=== PATIENT | female | born 1940 | race Caucasian/White ===

== ENCOUNTER 2016-05-29 03:26 | Inpatient (IN) | payer MEDICARE ==
[2016-05-29] VITALS (23 sets, daily range): BP systolic 69–166; BP diastolic 39–62
[~2016-05-29] VITALS: Ht 152.4 cm; Wt 42.6 kg
[2016-05-29] MEDS ORDERED: VANCOMYCIN PER PHARMACY MC PRN (03:45)
[2016-05-29] MEDS ORDERED: IPRATRPIUM/ALBUTEROL 0.5/2.5MG 3 ML NEBU. NEB ONE (04:00)
[2016-05-29 04:09] LABS: BASO % 0 % (0-3); EOS % 0 % (0-3); HEMATOCRIT 29.8 % (36.0-47.0); LYMPH # 0.6 x10^3/uL (1.0-4.8); LYMPH % 98 % (24-48); MEAN CORPUSCULAR HEMOGLOBIN 30 pg (25-35); MEAN CORPUSCULAR HGB CONC 33 g/dL (31-37); MEAN CORPUSCULAR VOLUME 88 fL (79-100); MONO % 1 % (0-9); NEUT % 1 % (31-73); PLATELET COUNT 33 x10^3/uL (140-400); RED BLOOD COUNT 3.38 x10^6/uL (3.50-5.40); RED CELL DISTRIBUTION WIDTH 14.9 % (11.5-14.5)
[2016-05-29 04:14] LABS: CALCIUM 9.1 mg/dL (8.5-10.1); CREATININE 1.9 mg/dL (0.6-1.0); GFR 25.8; POTASSIUM 3.3 mmol/L (3.5-5.1)
[2016-05-29 04:15] LABS: WHITE BLOOD COUNT 0.6 x10^3/uL (4.0-11.0)
[2016-05-29] MEDS ORDERED: IV NORMAL SALINE 1000ML BAG 1,000 ML IV SCH ×3 (04:15→08:25)
[2016-05-29 04:28] LABS: OBC FLU VALID
[2016-05-29 04:29] LABS: ALBUMIN 3.1 g/dL (3.4-5.0); ALBUMIN/GLOBULIN RATIO 0.9 (1.0-1.7); TOTAL BILIRUBIN 0.6 mg/dL (0.2-1.0); TOTAL PROTEIN 6.5 g/dL (6.4-8.2)
[2016-05-29] MEDS ORDERED: ACETAMINOPHEN 650 MG SUPP.RECT. ONE (04:30)
[2016-05-29] MEDS ORDERED: VANCOMYCIN 1 GM in IV NORMAL SALINE 250ML 250 ML IV ONE (04:30)
[2016-05-29] MEDS ORDERED: FENTANYL PF 100 MCG/2 ML VIAL. IV PRN (04:45)
[2016-05-29] MEDS ORDERED: ONDANSETRON PF 4 MG/2 ML VIAL. IV PRN (04:45)
[2016-05-29] MEDS ORDERED: ACETAMINOPHEN 325 MG TABLET. PO PRN (04:45)
[2016-05-29 04:55] LABS: BILIRUBIN,URINE NEGATIVE (NEG); GLUCOSE,URINE NEGATIVE (NEG); NITRITE,URINE NEGATIVE (NEG); PROTEIN,URINE 30 mg/dL (NEG-TRACE); UROBILINOGEN,URINE 0.2 mg/dL (0.2 mg/dL)
[2016-05-29] MEDS ORDERED: ACETAMINOPHEN 650 MG SUPP.RECT. PR ONE (05:00)
[2016-05-29 05:15] LABS: BACTERIA,URINE 0 /HPF (0-FEW); RBC,URINE 0 /HPF (0-2); WBC,URINE 0 /HPF (0-4)
--- NOTE | 2016-05-29 05:24 | PHYS DOC ---
Past Medical History Past Medical History: A-Fib, Cancer, COPD Additional Past Medical Histor: LUNG CA, LIVER CA, BRAIN CA, BRAIN TUMOR Past Surgical History: Hysterectomy, Other Additional Past Surgical Histo: STENT PLACEMENT Alcohol Use: None Drug Use: None Adult General Chief Complaint Chief Complaint: GENERALIZED BODY ACHES HPI HPI Patient is an extremely poor historian at this time. Patient is tachypneic with BiPAP in place. Unable to obtain a great history from the patient this time. Patient's contacted [facility] where he thought she was heading with the ambulance. Patient is a 75 year old female who presents to the ER today by EMS secondary to shortness of breath. Patient has a complicated past medical history. Patient had wanted to go to for all her care is however K he was on diversion and so she is brought to [facility]. Patient has a history of atrial fibrillation. Patient history of COPD, lung cancer, liver cancer, cancer, bone cancer. reports that she has been feeling sick starting earlier today. He reports that she been having fevers at home. No change in her cough. Positive nausea and vomiting times one. No diarrhea. Reports she's been tolerating by mouth's at her baseline. Patient reports no change in her chronic abdominal discomfort. reports that her last chemotherapy approximately one week ago. He reports that her cancer doctor is Dr. Rose and génesis from . He reports that her primary care physician is Dr. Stewart. Reports that his is a full code. Patient's physical exam was significant for a cachectic 75-year-old female who appears to be in significant respiratory distress. Unable to speak in full sentences. Diffuse inspiratory nycturia wheezing and rhonchi. Respiratory rate of 40 upon arrival to the ER. Temperature 103.6 axillary. Abdomen was soft nontender no rebound or guarding. Port-A-Cath site was clean and dry. No nuchal rigidity. No Kernig's sign or Brudzinski sign. No evidence of meningitis on exam. Patient's ER workup revealed a lactic acid was significantly elevated. Patient' s chest x-ray revealed a right lower lobe pneumonia. Patient has a total WBC of 0.6 with 1 neutrophil. This gives the patient a absolute neutrophil count of 6. While in the ER the patient was aggressively treated with IV fluids at 30 mL/ kg. Patient was given vancomycin, Levaquin, and cefepime. I spoke to pharmacy and they were going to put in the order for the cefepime which will require an infectious disease consultation. Patient is given Tylenol. Patient was placed on BiPAP to assist her with her respiratory status. Patient will be admitted to the ICU for further management of her sepsis and respiratory failure. Critical care time of 45 minutes reutilized a treatment and management of this patient sepsis, respirations failure, neutropenic fever. Review of Systems Review of Systems Constitutional: Positive fever Eyes: Denies change in visual acuity, redness, or eye pain [] All other review systems are negative except as documented in the history of present illness portion. Current Medications Current Medications Current Medications Medications (Trade) Dose Ordered Sig/Oscar Start Time Stop Time Status Last Admin Dose Admin Acetaminophen 650 mg 650 mg STK-MED ONCE 05/29/16 04:30 05/29/16 04:31 DC Albuterol/ Ipratropium 3 ml 3 ml 1X ONCE 05/29/16 04:00 05/29/16 04:01 DC 05/29/16 03:55 3 ML Levofloxacin/ Dextrose (LEVAQUIN 750mg PREMIX) 150 ml @ 100 mls/hr 1X ONCE 05/29/16 04:00 05/29/16 05:29 05/29/16 04:25 100 MLS/HR Sodium Chloride (Iv Sodium Chloride 0.9% 1000ml Bag) 1,000 ml @ 125 mls/hr Q8H 05/29/16 04:36 05/30/16 04:35 Vancomycin HCl 1 each 1 each PRN DAILY PRN 05/29/16 03:45 Vancomycin HCl/ Sodium Chloride (Iv Sodium Chloride 0.9% 250ml) 250 ml @ 250 mls/hr 1X ONCE 05/29/16 04:30 05/29/16 05:29 05/29/16 04:25 250 MLS/HR Allergies Allergies Allergies Coded Allergies Type Severity Reaction Last Updated Verified aspirin Allergy Intermediate 05/29/16 Yes cortisone Allergy Intermediate 05/29/16 Yes Physical Exam Physical Exam Constitutional: Cachectic in severe to moderate respiratory distress toxic appearing.] HENT: Normocephalic, atraumatic, bilateral external ears normal, oropharynx moist, no oral exudates, nose normal. [] Eyes: PERRLA, EOMI, conjunctiva normal, no discharge. [] Neck: Normal range of motion, no tenderness, supple, no stridor. [] Cardiovascular: Tachycardic regular rhythm Lungs & Thorax: Coarse breath sounds bilaterally. Tachypnea. Abdomen: Bowel sounds normal, soft, no tenderness, no masses, no pulsatile masses. [] Skin: Warm, dry, no erythema, no rash. [] Back: No tenderness, no CVA tenderness. [] Extremities: No tenderness, no cyanosis, no clubbing, ROM intact, no edema. [] Neurologic: Alert and oriented X 3, normal motor function, normal sensory function, no focal deficits noted. [] Psychologic: Affect normal, judgement normal, mood normal. [] Current Patient Data Vital Signs Vital Signs Date Time Temp Pulse Resp B/P Pulse Ox O2 Delivery O2 Flow Rate FiO2 05/29/16 04:07 100 BiPAP/CPAP 05/29/16 03:40 103.1 109 32 86/39 103.1 Lab Values Laboratory Tests Test 05/29/16 03:45 05/29/16 03:56 White Blood Count 0.6x10^3/uL (4.0-11.0) *L Red Blood Count 3.38x10^6/uL (3.50-5.40) L Hemoglobin 10.0g/dL (12.0-15.5) L Hematocrit 29.8% (36.0-47.0) L Mean Corpuscular Volume 88fL (79-100) Mean Corpuscular Hemoglobin 30pg (25-35) Mean Corpuscular Hemoglobin Concent 33g/dL (31-37) Red Cell Distribution Width 14.9% (11.5-14.5) H Platelet Count 33x10^3/uL (140-400) L Neutrophils (%) (Auto) 1% (31-73) L Lymphocytes (%) (Auto) 98% (24-48) H Monocytes (%) (Auto) 1% (0-9) Eosinophils (%) (Auto) 0% (0-3) Basophils (%) (Auto) 0% (0-3) Neutrophils # (Auto) 0.0x10^3uL (1.8-7.7) L Lymphocytes # (Auto) 0.6x10^3/uL (1.0-4.8) L Monocytes # (Auto) 0.0x10^3/uL (0.0-1.1) Eosinophils # (Auto) 0.0x10^3/uL (0.0-0.7) Basophils # (Auto) 0.0x10^3/uL (0.0-0.2) Sodium Level 136mmol/L (136-145) Potassium Level 3.3mmol/L (3.5-5.1) L Chloride Level 100mmol/L (98-107) Carbon Dioxide Level 24mmol/L (21-32) Anion Gap 12 (6-14) Blood Urea Nitrogen 36mg/dL (7-20) H Creatinine 1.9mg/dL (0.6-1.0) H Estimated GFR (Cockcroft-Gault) 25.8 BUN/Creatinine Ratio 19 (6-20) Glucose Level 105mg/dL (70-99) H Lactic Acid Level 5.7mmol/L (0.4-2.0) *H Calcium Level 9.1mg/dL (8.5-10.1) Total Bilirubin 0.6mg/dL (0.2-1.0) Aspartate Amino Transferase (AST) 28U/L (15-37) Alanine Aminotransferase (ALT) 24U/L (14-59) Alkaline Phosphatase 60U/L (46-116) Troponin I Quantitative < 0.017ng/mL (0.000-0.055) Total Protein 6.5g/dL (6.4-8.2) Albumin 3.1g/dL (3.4-5.0) L Albumin/Globulin Ratio 0.9 (1.0-1.7) L Influenza Type A Antigen Negative (NEGATIVE) Influenza Type B Antigen Negative (NEGATIVE) Laboratory Tests 05/29/16 03:45 Laboratory Tests 05/29/16 03:45 EKG EKG [] Interpretation Time: EKG reveals sinus tach at [address]-T wave abnormalities. Radiology/Procedures Radiology/Procedures [] Course & Med Decision Making Course & Med Decision Making Pertinent Labs and Imaging studies reviewed. (See chart for details) [] Dragon Disclaimer Dragon Disclaimer This electronic medical record was generated, in whole or in part, using a voice recognition dictation system. Departure Departure Impression: Primary Impression: Neutropenic fever Additional Impressions: Pneumonia Sepsis Respiratory failure Atrial fibrillation Elevated lactic acid level Lung cancer Bone cancer COPD exacerbation Liver cancer History of brain cancer Disposition: ADMITTED INPATIENT Admitting Physician: Becky Carty Condition: GRAVE Referrals: SHREYAS BARRERA (PCP) Problem Qualifiers RIO BUTTS MD May 29, 2016 05:12
[2016-05-29 05:41] LABS: BODY TEMP ABG 98.6 DEG; CORRECTED PCO2 ABG 33 mmHg; CORRECTED PH ABG 7.34; CORRECTED PO2 ABG 82 mmHg; HCO3 ABG 17 mmol/L (21-28); PCO2 ABG 31 mmHg (35-46); PH ABG 7.36 (7.35-7.45); PO2 ABG 74 mmHg (65-108); SAT O2 ABG 93 % (92-99)
[2016-05-29 05:42] LABS: FIO2 ABG 40
[2016-05-29] MEDS ORDERED: CEFEPIME HCL 1 GM in IV NORMAL SALINE 50ML 50 ML IV SCH (06:00)
[2016-05-29] MEDS: NOREPINEPHRINE VIAL 8 MG in IV NORMAL SALINE 250ML 250 ML IV PRN ×2 (06:26→23:31)
--- NOTE | 2016-05-29 07:05 | EKG ---
[facility] [address] [place] [address] Test Date: 2016-05-29 Test Time: 04:07:37 Pat Name: RIVER WOODS Department: Room: 106 1 Gender: F Program Review Director: : 1940 Requested By: RIO BUTTS Order Number: [id number] Reading MD: Albert Sanderson Measurements Intervals [place] Rate: 105 P: -178 VT: 122 QRS: -53 QRSD: 94 T: 82 QT: 382 QTc: 509 Interpretive Statements SINUS TACHYCARDIA ABNORMAL LEFT AXIS DEVIATION LEFT ANTERIOR FASCICULAR BLOCK LVH WITH REPOLARIZATION ABNORMALITY QRS(T) CONTOUR ABNORMALITY CONSIDER ANTEROSEPTAL MYOCARDIAL DAMAGE ABNORMAL ECG Electronically Signed On 05-29-2016 15:13:54 [employer] [employer] by Albert Sanderson
--- NOTE | 2016-05-29 07:21 | RAD ---
Portable chest, 05/29/2016: History: Fever, shortness of breath A right Port-A-Cath extends into the superior vena cava. The heart size is normal. There is calcific plaquing and tortuosity of the thoracic aorta. There is scarring over the pulmonary apices. There is a minimal right parahilar opacity. A few scattered parenchymal scars are seen. There is no evidence of pleural fluid or pneumothorax. Multiple bilateral rib fractures appear to be old. Moderate degenerative changes are present in the spine. Probable vertebroplasty changes are noted. IMPRESSION: Minimal right parahilar opacity raising the possibility of pneumonia. Follow-up PA and lateral chest radiographs are suggested for further evaluation.
--- NOTE | 2016-05-29 07:22 | PDOC ---
Infectious Disease Note ROS ROS GEN: Denies fevers, chills, sweats HEENT: Denies blurred vision, sore throat CV: Denies chest pain RESP: Denies shortness of air, cough GI: Denies n/v/d NEURO: Denies confusion, dizziness MSK: Denies weakness, joint pain/swelling Vital Sign Vital Signs Vital Signs Date Time Temp Pulse Resp B/P Pulse Ox O2 Delivery O2 Flow Rate FiO2 05/29/16 06:22 92 05/29/16 05:50 BiPAP/CPAP 05/29/16 03:40 103.1 109 32 86/39 103.1 Physical Exam PHYSICAL EXAM GENERAL: NAD, Alert HEENT: PERRL, OC/OP NECK: Supple, no JVD, no LN LUNGS: Clear HEART: S1S2, no gallop, no murmur ABD: Soft, NT, no organomegaly, no rebound EXT: No edema, no cyanosis [employer]ING [employer] OPERATOR: Alert, oriented x 3, no focal neurologic deficit SKIN: No rash IV: ok Labs Lab Laboratory Tests Test 05/29/16 03:45 05/29/16 03:56 05/29/16 04:45 05/29/16 04:48 White Blood Count 0.6x10^3/uL (4.0-11.0) Red Blood Count 3.38x10^6/uL (3.50-5.40) Hemoglobin 10.0g/dL (12.0-15.5) Hematocrit 29.8% (36.0-47.0) Mean Corpuscular Volume 88fL (79-100) Mean Corpuscular Hemoglobin 30pg (25-35) Mean Corpuscular Hemoglobin Concent 33g/dL (31-37) Red Cell Distribution Width 14.9% (11.5-14.5) Platelet Count 33x10^3/uL (140-400) Neutrophils (%) (Auto) 1% (31-73) Lymphocytes (%) (Auto) 98% (24-48) Monocytes (%) (Auto) 1% (0-9) Eosinophils (%) (Auto) 0% (0-3) Basophils (%) (Auto) 0% (0-3) Neutrophils # (Auto) 0.0x10^3uL (1.8-7.7) Lymphocytes # (Auto) 0.6x10^3/uL (1.0-4.8) Monocytes # (Auto) 0.0x10^3/uL (0.0-1.1) Eosinophils # (Auto) 0.0x10^3/uL (0.0-0.7) Basophils # (Auto) 0.0x10^3/uL (0.0-0.2) Sodium Level 136mmol/L (136-145) Potassium Level 3.3mmol/L (3.5-5.1) Chloride Level 100mmol/L (98-107) Carbon Dioxide Level 24mmol/L (21-32) Anion Gap 12 (6-14) Blood Urea Nitrogen 36mg/dL (7-20) Creatinine 1.9mg/dL (0.6-1.0) Estimated GFR (Cockcroft-Gault) 25.8 BUN/Creatinine Ratio 19 (6-20) Glucose Level 105mg/dL (70-99) Lactic Acid Level 5.7mmol/L (0.4-2.0) 6.3mmol/L (0.4-2.0) Calcium Level 9.1mg/dL (8.5-10.1) Total Bilirubin 0.6mg/dL (0.2-1.0) Aspartate Amino Transf (AST/SGOT) 28U/L (15-37) Alanine Aminotransferase (ALT/SGPT) 24U/L (14-59) Alkaline Phosphatase 60U/L (46-116) Troponin I Quantitative < 0.017ng/mL (0.000-0.055) Total Protein 6.5g/dL (6.4-8.2) Albumin 3.1g/dL (3.4-5.0) Albumin/Globulin Ratio 0.9 (1.0-1.7) Influenza Type A Antigen Negative (NEGATIVE) Influenza Type B Antigen Negative (NEGATIVE) Urine Collection Type U cath Urine Color Yellow Urine Clarity Clear Urine pH 6.0 Urine Specific [place] 1.010 Urine Protein 30mg/dL (NEG-TRACE) Urine Glucose (UA) Negativemg/dL (NEG) Urine Ketones (Stick) Negativemg/dL (NEG) Urine Blood Negative (NEG) Urine Nitrite Negative (NEG) Urine Bilirubin Negative (NEG) Urine Urobilinogen Dipstick 0.2mg/dL (0.2 mg/dL) Urine Leukocyte Esterase Negative (NEG) Urine RBC 0/HPF (0-2) Urine WBC 0/HPF (0-4) Urine Renal Epithelial Cells Many/LPF Urine Amorphous Sediment Present/HPF Urine Bacteria 0/HPF (0-FEW) Test 05/29/16 05:36 O2 Saturation 93% (92-99) Arterial Blood pH 7.36 (7.35-7.45) Arterial Blood pH (Temp corrected) 7.34 Arterial Blood pCO2 at Patient Temp 31mmHg (35-46) Arterial Blood pCO2 (Temp correct) 33mmHg Arterial Blood pO2 at Patient Temp 74mmHg (65-108) Arterial Blood pO2 (Temp corrected) 82mmHg Arterial Blood HCO3 17mmol/L (21-28) Arterial Blood Base Excess -7mmol/L (-3-3) FiO2 40 Objective Assessment Severe Sepsis - POA Acute Resp failure on 2 L at home no on Bipap Immunosuppression s/p chemo and Neulasta last week Met lung CA - abd and Brain Lymphocytosis - normal LFTS ? less likely viral AMBROSIO Cortisone allergy - itch on skin Abd pain ? mets Afib Plan Plan of Care Add Micafungin/Meropenem Hold further Levoflox - previous dose will last until at least 05/30 given AMBROSIO Strep/Legionella antigen Mycoplasma IgM Resp viral panel Art line and PICC line Await Pulm eval and may require intubation D/w KU micro h/o Proteus UTI December 2014. Feb 2015 - no growth 35 mins CC time D/w # [id number] HOWARD CALLAHAN MD May 29, 2016 07:22
[2016-05-29] MEDS ORDERED: MICAFUNGIN 100 MG in IV DEXTROSE 5% 100 ML IV SCH (08:00)
[2016-05-29] MEDS: MEROPENEM 500 MG in IV NORMAL SALINE 50ML 50 ML IV SCH ×3 (08:14→22:00)
[2016-05-29] MEDS: IPRATRPIUM/ALBUTEROL 0.5/2.5MG 3 ML NEBU. NEB SCH ×4 (08:18→19:22)
--- NOTE | 2016-05-29 08:54 | PDOC1 ---
History and Physical Date of Admission Date of Admission DATE: 05/29/16 TIME: 08:41 Identification/Chief Complaint Chief Complaint myalgia, dyspnea Source Source: Chart review, Patient History of Present Illness History of Present Illness Ms. Magallon presented to the ER overnight with myalgia, fatigue and dyspnea. MArkedly tachycardic and tachypneic with BiPAP in place. 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 med was on diversion for ambulances overnight, pt arrived here. SHe has not felt well < 24 hours, fever at home, . no cough, but now markedly dyspneic vomited X1 overnight, IV fluids given 30mls/kg, vitals better, lactate going up to [address] Stewart. Past Medical History Past Medical History Patient has a history of atrial fibrillation, COPD, lung cancer, lung cancer, met Past Surgical History Past Surgical History: No pertinent history Social History Smoke: Quit (20 yrs ago) ALCOHOL: rare Drugs: None Current Problem List Problem List Problems Medical Problems: (1) Atrial fibrillation Status: Acute (2) Bone cancer Status: Acute (3) COPD exacerbation Status: Acute (4) Elevated lactic acid level Status: Acute (5) History of brain cancer Status: Acute (6) Liver cancer Status: Acute (7) Lung cancer Status: Acute (8) Neutropenic fever Status: Acute (9) Pneumonia Status: Acute (10) Respiratory failure Status: Acute (11) Sepsis Status: Acute Problems: Current Medications Current Medications Current Medications Sodium Chloride (Iv Sodium Chloride 0.9% 1000ml Bag) 1,000 ml @ 333 mls/hr Q3H1M IV Last administered on 05/29/16 04:15; Start 05/29/16 at 04:15; Stop at 08:15; Status DC Vancomycin HCl 1 each 1 each PRN DAILY PRN MC PER PHARMACY Last administered on 05/29/16 05:15; Start 05/29/16 at 03:45 Levofloxacin/ Dextrose (LEVAQUIN 750mg PREMIX) 150 ml @ 100 mls/hr 1X ONCE IV Last administered on 05/29/16 04:25; Start 05/29/16 at 04:00; Stop 05/29/16 at 05:29; Status DC Albuterol/ Ipratropium 3 ml 3 ml 1X ONCE NEB Last administered on 05/29/16 03 :55; Start 05/29/16 at 04:00; Stop 05/29/16 at 04:01; Status DC Vancomycin HCl/ Sodium Chloride (Iv Sodium Chloride 0.9% 250ml) 250 ml @ 250 mls/hr 1X ONCE IV Last administered on 05/29/16 04:25; Start 05/29/16 at 04: 30; Stop 05/29/16 at 05:29; Status DC Acetaminophen (Tylenol) 650 mg STK-MED ONCE .ROUTE ; Start 05/29/16 at 04:30; Stop 05/29/16 at 04:31; Status DC Ondansetron HCl (Zofran) 4 mg PRN Q8HRS PRN IV NAUSEA/VOMITING; Start 05/29/16 at 04:45; Stop 05/30/16 at 04:44 Fentanyl Citrate 50 mcg 50 mcg PRN Q1HR PRN IV SEVERE PAIN; Start 05/29/16 at 04:45; Stop 05/30/16 at 04:44 Sodium Chloride (Iv Sodium Chloride 0.9% 1000ml Bag) 1,000 ml @ 125 mls/hr Q8H IV Last administered on 05/29/16 08:14; Start 05/29/16 at 04:36; Stop at 04:35 Acetaminophen (Tylenol) 650 mg PRN Q4HRS PRN PO FEVER; Start 05/29/16 at 04:45 ; Stop 05/30/16 at 04:44 Albuterol/ Ipratropium 3 ml 3 ml RTQID NEB Last administered on 05/29/16 08:18 ; Start 05/29/16 at 08:00; Stop 05/30/16 at 07:59 Cefepime HCl/ Sodium Chloride (Maxipime/Iv Sodium Chloride 0.9% 50ml) 50 ml @ 100 mls/hr Q24H IV ; Start 05/29/16 at 06:00; Stop 05/29/16 at 07:21; Status DC Acetaminophen 650 mg 650 mg 1X ONCE MS Last administered on 05/29/16 04:57; Start 05/29/16 at 05:00; Stop 05/29/16 at 05:01; Status DC Vancomycin HCl/ Sodium Chloride (Iv Sodium Chloride 0.9% 250ml) 250 ml @ 250 mls/hr Q48H IV ; Start 05/31/16 at 05:00 Vancomycin HCl 1 each 1 each 1X ONCE MC ; Start 06/02/16 at 04:30; Stop at 04:31 Norepinephrine Bitartrate 8 mg/ Sodium Chloride 258 ml @ 0 mls/hr CONT PRN IV SEE I/O RECORD Last administered on 05/29/16 06:26; Start 05/29/16 at 06:30 Micafungin Sodium 100 mg/Dextrose 100 ml @ 100 mls/hr Q24H IV Last administered on 05/29/16 08:15; Start 05/29/16 at 08:00 Meropenem/Sodium Chloride (Merrem/Iv Sodium Chloride 0.9% 50ml) 50 ml @ 100 mls /hr Q8HRS IV Last administered on 05/29/16 08:14; Start 05/29/16 at 08:00 Allergies Allergies: Coded Allergies: aspirin (Verified Allergy, Intermediate, 05/29/16) cortisone (Verified Allergy, Intermediate, 05/29/16) iodine (Verified Allergy, Intermediate, 05/29/16) ROS Review of System difficult to complete, pt dyspneic on BiPAP, some confused General: YES: Appetite, Chills, Fatigue, Malaise Physical Exam General: Alert, Cooperative, moderate distress, severe distress HEENT: Atraumatic, PERRLA Lungs: Other (rales, no wheeze, coarse, mod low volume, tachypneic) Heart: S1S2, other (sinus) Abdomen: Normal bowel sounds, Soft Rectal Exam: not examined Extremities: No cyanosis, No edema, Normal pulses Skin: No rashes, No breakdown, No significant lesion Neuro: Normal speech, Normal tone, Sensation intact Psych/Mental Status: Mood NL Vitals Vitals Vital Signs Date Time Temp Pulse Resp B/P Pulse Ox O2 Delivery O2 Flow Rate FiO2 05/29/16 07:30 102 37 131/44 99 BiPAP/CPAP 05/29/16 06:15 101.0 101.0 Labs Labs Laboratory Tests Test 05/29/16 03:45 05/29/16 03:56 05/29/16 04:45 05/29/16 04:48 White Blood Count 0.6x10^3/uL (4.0-11.0) Red Blood Count 3.38x10^6/uL (3.50-5.40) Hemoglobin 10.0g/dL (12.0-15.5) Hematocrit 29.8% (36.0-47.0) Mean Corpuscular Volume 88fL (79-100) Mean Corpuscular Hemoglobin 30pg (25-35) Mean Corpuscular Hemoglobin Concent 33g/dL (31-37) Red Cell Distribution Width 14.9% (11.5-14.5) Platelet Count 33x10^3/uL (140-400) Neutrophils (%) (Auto) 1% (31-73) Lymphocytes (%) (Auto) 98% (24-48) Monocytes (%) (Auto) 1% (0-9) Eosinophils (%) (Auto) 0% (0-3) Basophils (%) (Auto) 0% (0-3) Neutrophils # (Auto) 0.0x10^3uL (1.8-7.7) Lymphocytes # (Auto) 0.6x10^3/uL (1.0-4.8) Monocytes # (Auto) 0.0x10^3/uL (0.0-1.1) Eosinophils # (Auto) 0.0x10^3/uL (0.0-0.7) Basophils # (Auto) 0.0x10^3/uL (0.0-0.2) Sodium Level 136mmol/L (136-145) Potassium Level 3.3mmol/L (3.5-5.1) Chloride Level 100mmol/L (98-107) Carbon Dioxide Level 24mmol/L (21-32) Anion Gap 12 (6-14) Blood Urea Nitrogen 36mg/dL (7-20) Creatinine 1.9mg/dL (0.6-1.0) Estimated GFR (Cockcroft-Gault) 25.8 BUN/Creatinine Ratio 19 (6-20) Glucose Level 105mg/dL (70-99) Lactic Acid Level 5.7mmol/L (0.4-2.0) 6.3mmol/L (0.4-2.0) Calcium Level 9.1mg/dL (8.5-10.1) Total Bilirubin 0.6mg/dL (0.2-1.0) Aspartate Amino Transf (AST/SGOT) 28U/L (15-37) Alanine Aminotransferase (ALT/SGPT) 24U/L (14-59) Alkaline Phosphatase 60U/L (46-116) Creatine Kinase 23U/L (26-192) Troponin I Quantitative < 0.017ng/mL (0.000-0.055) Total Protein 6.5g/dL (6.4-8.2) Albumin 3.1g/dL (3.4-5.0) Albumin/Globulin Ratio 0.9 (1.0-1.7) Influenza Type A Antigen Negative (NEGATIVE) Influenza Type B Antigen Negative (NEGATIVE) Urine Collection Type U cath Urine Color Yellow Urine Clarity Clear Urine pH 6.0 Urine Specific [place] 1.010 Urine Protein 30mg/dL (NEG-TRACE) Urine Glucose (UA) Negativemg/dL (NEG) Urine Ketones (Stick) Negativemg/dL (NEG) Urine Blood Negative (NEG) Urine Nitrite Negative (NEG) Urine Bilirubin Negative (NEG) Urine Urobilinogen Dipstick 0.2mg/dL (0.2 mg/dL) Urine Leukocyte Esterase Negative (NEG) Urine RBC 0/HPF (0-2) Urine WBC 0/HPF (0-4) Urine Renal Epithelial Cells Many/LPF Urine Amorphous Sediment Present/HPF Urine Bacteria 0/HPF (0-FEW) Test 05/29/16 05:36 O2 Saturation 93% (92-99) Arterial Blood pH 7.36 (7.35-7.45) Arterial Blood pH (Temp corrected) 7.34 Arterial Blood pCO2 at Patient Temp 31mmHg (35-46) Arterial Blood pCO2 (Temp correct) 33mmHg Arterial Blood pO2 at Patient Temp 74mmHg (65-108) Arterial Blood pO2 (Temp corrected) 82mmHg Arterial Blood HCO3 17mmol/L (21-28) Arterial Blood Base Excess -7mmol/L (-3-3) FiO2 40 Laboratory Tests Test 05/29/16 03:45 05/29/16 03:56 05/29/16 04:45 05/29/16 04:48 White Blood Count 0.6x10^3/uL (4.0-11.0) Red Blood Count 3.38x10^6/uL (3.50-5.40) Hemoglobin 10.0g/dL (12.0-15.5) Hematocrit 29.8% (36.0-47.0) Mean Corpuscular Volume 88fL (79-100) Mean Corpuscular Hemoglobin 30pg (25-35) Mean Corpuscular Hemoglobin Concent 33g/dL (31-37) Red Cell Distribution Width 14.9% (11.5-14.5) Platelet Count 33x10^3/uL (140-400) Neutrophils (%) (Auto) 1% (31-73) Lymphocytes (%) (Auto) 98% (24-48) Monocytes (%) (Auto) 1% (0-9) Eosinophils (%) (Auto) 0% (0-3) Basophils (%) (Auto) 0% (0-3) Neutrophils # (Auto) 0.0x10^3uL (1.8-7.7) Lymphocytes # (Auto) 0.6x10^3/uL (1.0-4.8) Monocytes # (Auto) 0.0x10^3/uL (0.0-1.1) Eosinophils # (Auto) 0.0x10^3/uL (0.0-0.7) Basophils # (Auto) 0.0x10^3/uL (0.0-0.2) Sodium Level 136mmol/L (136-145) Potassium Level 3.3mmol/L (3.5-5.1) Chloride Level 100mmol/L (98-107) Carbon Dioxide Level 24mmol/L (21-32) Anion Gap 12 (6-14) Blood Urea Nitrogen 36mg/dL (7-20) Creatinine 1.9mg/dL (0.6-1.0) Estimated GFR (Cockcroft-Gault) 25.8 BUN/Creatinine Ratio 19 (6-20) Glucose Level 105mg/dL (70-99) Lactic Acid Level 5.7mmol/L (0.4-2.0) 6.3mmol/L (0.4-2.0) Calcium Level 9.1mg/dL (8.5-10.1) Total Bilirubin 0.6mg/dL (0.2-1.0) Aspartate Amino Transf (AST/SGOT) 28U/L (15-37) Alanine Aminotransferase (ALT/SGPT) 24U/L (14-59) Alkaline Phosphatase 60U/L (46-116) Creatine Kinase 23U/L (26-192) Troponin I Quantitative < 0.017ng/mL (0.000-0.055) Total Protein 6.5g/dL (6.4-8.2) Albumin 3.1g/dL (3.4-5.0) Albumin/Globulin Ratio 0.9 (1.0-1.7) Influenza Type A Antigen Negative (NEGATIVE) Influenza Type B Antigen Negative (NEGATIVE) Urine Collection Type U cath Urine Color Yellow Urine Clarity Clear Urine pH 6.0 Urine Specific [place] 1.010 Urine Protein 30mg/dL (NEG-TRACE) Urine Glucose (UA) Negativemg/dL (NEG) Urine Ketones (Stick) Negativemg/dL (NEG) Urine Blood Negative (NEG) Urine Nitrite Negative (NEG) Urine Bilirubin Negative (NEG) Urine Urobilinogen Dipstick 0.2mg/dL (0.2 mg/dL) Urine Leukocyte Esterase Negative (NEG) Urine RBC 0/HPF (0-2) Urine WBC 0/HPF (0-4) Urine Renal Epithelial Cells Many/LPF Urine Amorphous Sediment Present/HPF Urine Bacteria 0/HPF (0-FEW) Test 05/29/16 05:36 O2 Saturation 93% (92-99) Arterial Blood pH 7.36 (7.35-7.45) Arterial Blood pH (Temp corrected) 7.34 Arterial Blood pCO2 at Patient Temp 31mmHg (35-46) Arterial Blood pCO2 (Temp correct) 33mmHg Arterial Blood pO2 at Patient Temp 74mmHg (65-108) Arterial Blood pO2 (Temp corrected) 82mmHg Arterial Blood HCO3 17mmol/L (21-28) Arterial Blood Base Excess -7mmol/L (-3-3) FiO2 40 VTE Prophylaxis Ordered VTE Prophylaxis Devices: No VTE Pharmacological Prophylaxi: Yes Assessment/Plan Assessment/Plan Severe Sepsis, hypotension, shock, 30 mls/kg fluid bolus given in ER, cont 200/hr Acute hypoxic respiratory failure on chronic Resp insufficiency, on 2 L at home Metastatic [place] CA, stage 4, brain mets and renal known recent chemo, now w. Immunosuppression s/p Neulasta last week, Neutropenic fever consult Onc, may need repeat Neulasta AMBROSIO, vasomotor nephropathy hypokalemia mild.mod malnutrition on admit, ALb 3.1, BMI 18.4 Pulm, ID consult, agree with prior Vanc. cepepime, now added Micafungin/ Meropenem flu swab neg IR called for central line possibility of intubation discussed with ,. Full Code, he is however, unsure about chest compressions, consult palliative care > 35 mins, ICU admit DRE PAEZ MD May 29, 2016 08:54
[2016-05-29 08:59] LABS: NEGATIVE OBC MYCO NEG; POSITIVE OBC MYCO POS
[2016-05-29 09:00] LABS: HCO3 ABG 19 mmol/L (21-28); PCO2 ABG 38 mmHg (35-46); PH ABG 7.31 (7.35-7.45); PO2 ABG 91 mmHg (65-108); SAT O2 ABG 96 % (92-99)
[2016-05-29] MEDS ORDERED: LIDOCAINE (700MG/PATCH) PATCH. TD SCH (09:00)
[2016-05-29 09:04] LABS: FIO2 ABG 60
[2016-05-29] MEDS: MORPHINE SULFATE 2 MG/ML DISP.SYRIN. IV PRN ×4 (09:07→20:28)
--- NOTE | 2016-05-29 09:19 | RAD ---
Indication: Abdominal pain and metastatic lung cancer. Time of exam 0907 hours. Right chest wall port has the tip overlying the SVC right atrial junction. No effusion or pneumothorax is seen. Old rib fractures on the left are noted. No parenchymal consolidation is identified. No free air is identified. Mild gaseous distention to the stomach is seen. The bowel gas pattern is nonobstructive. There is moderate stool in the rectum. No pathologic calcifications are seen. Impression: No acute feature identified.
--- NOTE | 2016-05-29 10:56 | PDOC ---
Provider Note Provider Note dictated septic shock stage IV lung cancer supportive care/BIPAP would recommend DNR/DNI addend: d/w / family/ explained critical illness. He agrees with DNR/DNI Continue present aggressive treatment Palliative team meeting done as well ARABELLA MILLER MD May 29, 2016 10:56
[2016-05-29] MEDS ORDERED: SODIUM BICARB ADULT 8.4% 50 MEQ/50 ML DISP.SYRIN. ONE (14:39)
--- NOTE | 2016-05-29 16:06 | PDOC2 ---
PALLIATIVE CARE Palliative Care Note Palliative Care Consult requested by Dr. Pavon to address goals of care. Diagnosis; Lung Cancer with mets--liver, brain; Sepsis; Respiratory Failure--on BiPap; AMBROSIO; Patient seen 10 am. Complained of pain all over. SOB. Discussed Code Status; Patient requested to have input from her Juan. Spoke with Yoseph. He requested Intubation but no compressions. Family meeting arranged for 1430. Requested medical records from [facility]. Juan states no Lung Bx was done (concern for pneumothorax) however liver bx was done at [facility] 1420 Met with family: Juan ; sons Sunitha, Sarkis, Tyrone; daughter--Zaria and several granddaughter; grandsons and family friends. Reviewed medical condition; states patient was seen at [facility] day before admission. Labs done --did not receive results. Began having chills at the end of receiving fluids. Reviewed current labs Patient has been sleeping more. appetite remained fair, 5 pound weight loss recently. Patient had never shared her wishes if she become seriously ill Discussed code status; Juan stated he would not want his on life support. No chest compressions, shock, meds. Would like to continue current treatment plan to see if patient would improve. He would not want dialysis. Family is supportive of this wish Discussed prognosis; family concerned that she may no have long to live. 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 Karina: not an important part of her life. Plan: Continue current treatment plan Continue BiPap DNR/DNI per request of with the support of the family. MAIKOL MCINTOSH May 29, 2016 16:06
--- NOTE | 2016-05-29 16:52 | PDOC ---
Provider Note Provider Note Onc consult dictated- [id number] Stage IV SCLC with mets to liver, [employer] s/p Cycle 1 palliative carboplatin/ etoposide + Neulasta 05/[address] Menon at H/o multiple myeloma off tx since 10/17 with stable myeloma markers Sever sepsis, neutropenic fever due to chemo Hypoxic resp failure requiring rescue bipap Plan: - Granix daily until ANC > 1.5 - Supportive measures as you are doing - Pall care following, agree with DNR, likely needs hospice on DC if able to recover this admission. Future tx likely to be more toxic than helpful. Prognosis very poor. D/w Pat from Pall care and ICU nurse as well. Will alert her oncologist as well. CAMI FOX DO May 29, 2016 16:52
[2016-05-29] MEDS ORDERED: TBO-FILGRASTIM 300 MCG/0.5 ML SYRINGE. SQ SCH (21:00)
[2016-05-29 22:11] LABS: SPECIMEN SOURCE Urine (.)
--- NOTE | 2016-05-29 22:16 | CONS ---
DATE OF CONSULTATION: 05/29/2016 The patient is in room ICU 6. REQUESTING PHYSICIAN: Dr. Stewart. REASON FOR CONSULTATION: Sepsis, pneumonia, neutropenic fever, respiratory failure. HISTORY OF PRESENT ILLNESS: The patient is a 75-year-old female with a history of tobacco abuse, which she stopped in 2006; however, recently diagnosed with metastatic lung cancer to her liver as well as her brain. She is on 2 liters of oxygen at home normally. She had a Port-A-Cath placed approximately 2 weeks ago and then received her first doses of 3 days of chemotherapy last week at followed by some Neulasta per her . On Friday, she went to and underwent an MRI of her head with contrast because she has had previous one without contrast. The purpose of the MRI per her was to evaluate if she had lesions in her head or to confirm what lesions in her head as an MRI without contrast was somewhat speculated. According to her , she did have some lesions seen on the MRI with contrast and she then had a little bit of upset stomach on Friday. Yesterday, he said they went back to to get some hydration and at home, she vomited three times and felt somewhat tired. Also on Friday, she has complained of being cold. When he got her home yesterday, she went to sleep and he did not awaken her, but noticed that she began to have trouble with her breathing. He called the ambulance; however, is on diversion and she was brought to [facility]. This morning she had a temperature of 103.1. White count was 0.6 with 98% lymphocytes. Creatinine was 1.9. Initial lactic acid was 5.7, but increased to 6.3. Urinalysis was clean. Influenza screen was negative. Chest x-ray was performed. There is no official report, but she does have consolidative type lesions on the right side of her lung. She was given a dose of cefepime, levofloxacin x 1 and started on vancomycin and has been admitted to the intensive care unit. She had been on Levophed 5, but now has been increased to 20 as her blood pressures have dropped down into the 50s. Additionally, the patient is on BiPAP. She is somewhat arousable. She denies any sinus drainage, appeared to have mild cough. She denies any sore throat. She has had some stomach discomfort, but is somewhat chronic. She denies any dysuria, frequency, or urgency. No falls, rash. She does have a little bit of tenderness around her Port-A-Cath. PAST MEDICAL HISTORY: Positive for lung cancer with metastatic disease, atrial fibrillation, COPD. She has had coronary artery disease with stent placements. She has had hysterectomy, cataracts. REVIEW OF SYSTEMS: As mentioned above. ALLERGIES: Listed as CORTISONE, states it causes itching, but her believes she has had some steroids. ASPIRIN and CODEINE are also listed. SOCIAL HISTORY: Again, she quit smoking in 2006. She is . No alcohol use. FAMILY HISTORY: Noncontributory. CURRENT MEDICATIONS: Include cefepime, levofloxacin x 1, IV vancomycin and Levophed. PHYSICAL EXAMINATION: VITAL SIGNS: Again, T max 103.1 axillary, pulse was 109, respiratory rate was 32, blood pressure 86/39. She is now most recently satting 95% on BiPAP. CONSTITUTIONAL: She is alert. She looks tired. She is in some moderate distress. HEENT: Pupils are equal and reactive. She looks pale. NECK: Supple, no JVD. LUNGS: Coarse bilaterally. She has a Port-A-Cath in the right chest that appears to be healing. There is mild erythema around the incision, is a little bit tender. HEART: S1, S2, without murmur. ABDOMEN: Minimally distended. She is a little bit tender. Decreased bowel sounds. There is no guarding, no gross rebound. EXTREMITIES: Thin. No clubbing, cyanosis or gross edema. Cesar is in place. Peripheral IVs without signs of complications. SKIN: Without generalized signs of rash. NEUROLOGIC: She moves all extremities, but does appear weak. Affect is flat. LABORATORY VALUES: White count 0.6, hemoglobin 10, platelets of 33, 1 neutrophil, 98% lymphocytes. Creatinine of 1.9, glucose of 105. She had normal liver function study tests. Troponin of 0.017. Lactic acid elevated at 6.3. Again, the influenza negative. Urine is clean. Chest x-ray is reviewed in the history of present illness. IMPRESSION: 1. Severe sepsis, present on admission. 2. Acute respiratory failure, on 2 liters at home normally, now on BiPAP with her most recent blood gas showing 93% saturation, pH of 7.34 with a bicarbonate of 31, pO2 of 82 on 40%. 3. Immunosuppression status post chemotherapy and Neulasta last week. 4. Metastatic lung cancer to abdominal area and brain. 5. Leukocytosis, but has normal liver function study tests, questionable, less likely viral. 6. Acute kidney injury. 7. CORTISONE ALLERGY, causes itch on the skin. 8. Abdominal pain, questionable from mets. 9. Atrial fibrillation. RECOMMENDATIONS: We will add micafungin as she is at risk for yeast infections. Other arterial line given her low pressure and when more accurate readings and also to obtain more accurate ABGs as well, PICC line, although she is septic and does have a Port-A-Cath, she is going to need multiple access use given her severe condition. Obtain respiratory viral panel, strep pneumo antigen, Legionella serology antigen, mycoplasma IgM. We will discontinue the cefepime and broaden out to meropenem given her abdominal pain and metastatic disease. Also, obtain a creatinine kinase and acute abdominal series as well as follow up on laboratory values in the morning and cultures that have been ordered. I did call [facility] and discussed with micro. She had a history of Proteus urinary tract infection in December 2014 that was resistant to nitrofurantoin and tetracycline. A repeat urine in February 2015 showed no growth. Await pulm eval and may require intubation. I spent 35 minutes of critical care time discussing with . Thank you for allowing me to participate in this patient's care. If you have any questions, please do not hesitate to contact me. HOWARD CALLAHAN MD DR: [email or web address]/bria JOB#: [id number] / [id number]
--- NOTE | 2016-05-29 23:43 | CONS ---
DATE OF CONSULTATION: 05/29/2016 REFERRING PROVIDER: Dr. Carty. REASON FOR CONSULTATION: Lung cancer. HISTORY OF PRESENT ILLNESS: The patient is a 75-year-old female treated by Dr. Menon at [facility] for her small cell lung cancer. She has multiple comorbidities. I have reviewed Oncology records, imaging, labs, pathology. 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 She received palliative carboplatin/etoposide on 05/21/2016. Today is day #9 of her chemotherapy. She was seen in clinic yesterday when she was noted to have significant neutropenia with an ANC of 0.06. She was started on prophylactic Levaquin, however, when she returned home, she became very chilled. According to her family, her found her somewhat unresponsive. Here she has presented with severe sepsis with shock, acute respiratory failure, requiring BiPAP and acute kidney insufficiency. Her ANC is now zero. Platelet count dropped from 52 yesterday down to 33 today. Her lactic acid was 6.3. PAST MEDICAL HISTORY: Hypertension, COPD requiring chronic oxygen, heart disease, hyperlipidemia, multiple myeloma in 2013, previously on treatment, which caused mesenteric ischemia as a side effect. Therefore, she has been off myeloma treatment since 10/2014 and her myeloma labs have remained stable. Several compression fractures, NSTEMI, peripheral vascular disease, heart failure, chronic kidney disease stage III. PAST SURGICAL HISTORY: ANGIE, bladder sling, tonsillectomy, carpal tunnel surgery, hand surgery, cataract repair, cardiac stent in 02/2016. FAMILY HISTORY: Mom had lung cancer, COPD and heart disease. She was a heavy smoker as well. SOCIAL HISTORY: She has smoked for 40 years, but quit in 1996. ALLERGIES: ASPIRIN, CODEINE, CORTISONE, IODINE. CURRENT MEDICATIONS: Tylenol, DuoNeb, fentanyl, Lidoderm, meropenem, micafungin, morphine, norepinephrine, Zofran, vancomycin. REVIEW OF SYSTEMS: Attempted with the assistance of family. The patient herself is unable to speak as she is extremely dyspneic and requiring BiPAP. She apparently has had some chills, decreased weight, decreased appetite, significant shortness of breath and lethargy. They did not know of any other specific complaints. PHYSICAL EXAMINATION: VITAL SIGNS: Temperature 103.1, pulse 108, respiratory rate 38, blood pressure 150/52, 97% O2 on rescue BiPAP. GENERAL: She is very thin and cachectic. She is noticeably in moderate distress due to her respiratory difficulties. HEENT: Extraocular muscles are intact. No scleral icterus. Mucous membranes are dry. CARDIOVASCULAR: Heart is tachycardic, but regular in rate. LUNGS: Respiratory distress requiring rescue BiPAP. Clear, however, to auscultation. ABDOMEN: No distention, nontender. EXTREMITIES: No edema. NEUROLOGIC: No focal cranial deficit. IMAGING/LABORATORY DATA: Pertinent CBC findings as above. Her chest x-ray does reveal a possible pneumonia. Creatinine now 1.9. ASSESSMENT AND PLAN: The patient is a 75-year-old female with the following medical problems: 1. T1b Nx M1B stage IVB extensive stage small cell lung cancer with liver, mediastinal and PRESSURE SEALER AND TESTER metastases treated by Dr. Menon at [facility]. She received her first cycle of palliative carboplatin/etoposide on 05/21/2016. She unfortunately is having significant complications with severe sepsis and neutropenia at this time. We will have to see if she is able to recover from this hospital course. If not, hospice is extremely appropriate. Her code status was changed to DNR this admission and I agree with that. I think she will likely have poor tolerance for any further chemotherapy. I will alert Dr. Menon of her admission and clinical status. Palliative care is already following. 2. Severe sepsis and neutropenic fever related to chemotherapy. Supportive measures are in place. I did add Granix which we will continue daily until her ANC is above 1.5. Her platelets are trending down. I would encourage transfusion for hemoglobin less than 7, platelets less than 10. 3. Acute respiratory failure requiring rescue BiPAP with pneumonia. She has been started on antibiotics. I agree with the decision to not attempt intubation. Thank you for alerting us of her admission. I discussed her case with Pat from palliative care. I will update Dr. Menon as well. Dr. Chapman will be covering tomorrow. CAMI FOX DO DR: ANNELISE/bria JOB#: [id number] / [id number] MTDD
[2016-05-30] VITALS (19 sets, daily range): BP systolic 34–128; BP diastolic 24–64
[2016-05-30] MEDS ORDERED: SODIUM BICARB ADULT 8.4% 50 MEQ/50 ML DISP.SYRIN. ONE (02:00)
[2016-05-30] MEDS ORDERED: DOPAMINE 400MG/250ML PREMIX BAG. IV ONE (02:00)
--- NOTE | 2016-05-30 02:02 | CONS ---
DATE OF CONSULTATION: 05/29/2016 ATTENDING PHYSICIAN: Dr. Carty. REASON FOR CONSULTATION: Septic shock. HISTORY OF PRESENT ILLNESS: The patient is a 75-year-old female who has history of stage IV lung cancer with metastasis to the kidney and brain. She has been followed at Oncology and had chemo last week. She was brought into the hospital with increasing myalgia, fatigue and dyspnea. She was markedly tachypneic and tachycardic. She was noted to have severe neutropenia with white cell count of only 0.6 and thrombocytopenia with a platelet count of 33. Her chest x-ray shows slightly prominent interstitial markings, right hilar fullness and possibly a right perihilar infiltrate. The patient was noted to be septic. She is requiring 20 mcg of Levophed. She is still tachypneic on BiPAP. ABGs showed a pH of 7.31, pCO2 of 38, pO2 of 91 on 60% oxygen. She was initiated on broad spectrum antibiotics. Her lactic acid was up at 6.3, now trending down to 3.9. Code discussion has been made with the patient who has deferred to her . Palliative care meeting is being scheduled for this afternoon. She remains on BiPAP. PAST MEDICAL HISTORY: Significant for history of COPD, history of stage IV lung cancer with mets to the brain and kidney, history of atrial fibrillation. PAST SURGICAL HISTORY: No recent surgeries. ALLERGIES: ASPIRIN, CORTISONE, AND IODINE. MEDICATIONS: All reviewed including broad spectrum antibiotics and Levophed. REVIEW OF SYSTEMS: Limited, but pertinent positives discussed in history of present illness. SOCIAL HISTORY: Has a history of tobacco use in the past. PHYSICAL EXAMINATION: GENERAL: She is tachypneic on BiPAP. VITAL SIGNS: Blood pressure 131/44, pulse is 102. Pulse ox 99% on BiPAP. HEENT: Sclerae nonicteric. NECK: Supple. LUNGS: Few rhonchi anteriorly. CARDIOVASCULAR: Tachycardia. ABDOMEN: Soft, mildly tender. EXTREMITIES: No pitting edema. LABORATORY DATA: Reviewed. White cell count is 0.6, hemoglobin 10.0 and platelets are 33. Lactic acid is down to 3.9. Influenza screen is negative. IMPRESSION: 1. Septic shock in a patient who is immunocompromised. The source is not so obvious, most likely urinary tract infection, but cannot exclude a pulmonary source. 2. Severe metabolic acidosis secondary to septic shock, currently improving. 3. Stage IV lung cancer with mets to the brain and kidneys. 4. Chemo induced neutropenia and thrombocytopenia. 5. Acute hypoxic respiratory failure secondary to sepsis/septic shock. 6. Acute kidney injury secondary to septic shock. 7. Moderate protein-calorie malnutrition. RECOMMENDATIONS: 1. Continue with present BiPAP. 2. Follow blood cultures, urine cultures. 3. Infectious Disease recommendations. 4. Broad-spectrum antibiotics. 5. BiPAP to continue. 6. p.r.n. bicarbonate. 7. Avoid sedatives. 8. Discussed advanced directives with the patient and she wants to discuss this with her . Her daughters are on their way. Palliative care meeting has been arranged for this afternoon. I would recommend DNR/DNI with continued present aggressive support. Discussed with RN and RT. Critical time 40 minutes. ARABELLA MILLER MD DR: AXEL/bria JOB#: [id number] / [id number]
[2016-05-30] MEDS: MORPHINE SULFATE 2 MG/ML DISP.SYRIN. IV PRN (02:07)
[2016-05-30] MEDS ORDERED: DOPAMINE 400MG/250ML PREMIX 250 ML IV ONE (04:39)
[2016-05-31] MEDS ORDERED: VANCOMYCIN 750 MG in IV NORMAL SALINE 250ML 250 ML IV SCH (05:00)
[2016-06-03 22:12] LABS: RVP ADENOVIRUS Negative (Negative); RVP INFLUENZA A Negative (Negative); RVP INFLUENZA B Negative (Negative); RVP METAPNEUMOVIRUS Negative (Negative); RVP PARAINFLUENZA 1 Negative (Negative); RVP PARAINFLUENZA 2 Negative (Negative); RVP PARAINFLUENZA 3 Positive (Negative); RVP RHINOVIRUS Negative (Negative); RVP RSV A Negative (Negative); RVP RSV B Negative (Negative)
== END 2016-05-30 05:07 | disposition expired | DRG 871 ==
LOC: ER 03:26 → 1 WEST ICU 04:42
PROVIDERS: ADMIT Internal Medicine; ATTEND Internal Medicine
PROC: 5A09457 Assistance with Respiratory Ventilation, 24-96 Consecutive Hours, Continuous Positive Airway Pressure (ICD-10-PCS; principal; 2016-05-28)
DX: A41.9 Sepsis, unspecified organism (principal); J18.9 Pneumonia, unspecified organism; J96.01 Acute respiratory failure with hypoxia; N17.0 Acute kidney failure with tubular necrosis; R65.21 Severe sepsis with septic shock; C34.90 Malignant neoplasm of unspecified part of unspecified bronchus or lung; C78.7 Secondary malignant neoplasm of liver and intrahepatic bile duct; C79.00 Secondary malignant neoplasm of unspecified kidney and renal pelvis; C79.31 Secondary malignant neoplasm of brain; C90.00 Multiple myeloma not having achieved remission; E44.0 Moderate protein-calorie malnutrition; Z68.1 Body mass index [BMI] 19.9 or less, adult; I13.0 Hypertensive heart and chronic kidney disease with heart failure and stage 1 through stage 4 chronic kidney disease, or unspecified chronic kidney disease; J44.0 Chronic obstructive pulmonary disease with (acute) lower respiratory infection; J44.1 Chronic obstructive pulmonary disease with (acute) exacerbation; R64 Cachexia; D70.1 Agranulocytosis secondary to cancer chemotherapy; D69.59 Other secondary thrombocytopenia; D89.9 Disorder involving the immune mechanism, unspecified; E78.5 Hyperlipidemia, unspecified; E87.6 Hypokalemia; I48.91 Unspecified atrial fibrillation; I50.9 Heart failure, unspecified; I25.10 Atherosclerotic heart disease of native coronary artery without angina pectoris; I73.9 Peripheral vascular disease, unspecified; M79.1 Myalgia; H26.9 Unspecified cataract; N18.3 Chronic kidney disease, stage 3 (moderate); T45.1X5A Adverse effect of antineoplastic and immunosuppressive drugs, initial encounter; Z51.5 Encounter for palliative care; Z66 Do not resuscitate; Z87.891 Personal history of nicotine dependence; I25.2 Old myocardial infarction; Z85.05 Personal history of malignant neoplasm of liver; Z85.118 Personal history of other malignant neoplasm of bronchus and lung; Z85.528 Personal history of other malignant neoplasm of kidney; Z85.830 Personal history of malignant neoplasm of bone; Z85.841 Personal history of malignant neoplasm of brain; Z90.710 Acquired absence of both cervix and uterus; Z98.49 Cataract extraction status, unspecified eye; Z92.21 Personal history of antineoplastic chemotherapy; Z95.5 Presence of coronary angioplasty implant and graft; Z99.81 Dependence on supplemental oxygen; Z80.1 Family history of malignant neoplasm of trachea, bronchus and lung; Z82.5 Family history of asthma and other chronic lower respiratory diseases; Z82.49 Family history of ischemic heart disease and other diseases of the circulatory system; Z88.8 Allergy status to other drugs, medicaments and biological substances; Z88.6 Allergy status to analgesic agent; Z91.018 Allergy to other foods
CPT/HCPCS: 36415; 36600; 71010; 74022; 80053; 81001; 82550; 82805; 83605; 84484; 85027; 86738; 87040; 87449; 87633; 87641; 87804; 93005; 94640; 94660; 96360; J1265; J1956; J2185; J2248; J2270; J3370; J7030; J7050; J7620; 99285-25; J1442